=== PATIENT | female | born 1995 ===

== ENCOUNTER 2018-07-19 03:19 | Emergency (ER) | payer MEDICAID ==
[2018-07-19 03:35] VITALS: BP 132/90; PULSE 93; RESP 18; TEMP 98.9; O2SAT 100
--- NOTE | 2018-07-19 03:35 | ED PDOC ---
Lower Extremity Pain/Injury Time Seen by Provider: 07/19/18 03:29 Chief Complaint (Nursing): Lower Extremity Problem/Injury Chief Complaint (Provider): left knee pain History Per: Patient Additional Complaint(s): 22 y/o female presents moderate pain to left knee. Patient states 4 years ago she was diagnosed with an ACL tear but then he was never repaired. For the last few days she's had worsening pain but denies trauma or injury. Earlier this evening she felt a pop in her knee and has had excruciating pain since then. Patient called ambulance and was brought here. She did not take any medicine for pain relief prior to arrival PMD: Dr. Marlena Quiñonez Past Medical History Reviewed: Historical Data, Nursing Documentation, Vital Signs Vital Signs: Last Vital Signs Temp 98.9 F 07/19/18 03:23 Pulse 93 H 07/19/18 03:23 Resp 18 07/19/18 03:23 BP 132/90 07/19/18 03:23 Pulse Ox 100 07/19/18 03:23 - Medical History PMH: No Chronic Diseases - Surgical History Surgical History: No Surg Hx - Family History Family History: States: No Known Family Hx - Living Arrangements Living Arrangements: With Family - Social History Current smoker - smoking cessation education provided: No Alcohol: None Drugs: Denies - Home Medications Home Medications: Ambulatory Orders Medication Instructions Recorded Ibuprofen [Motrin Tab] 800 mg PO Q8 PRN #20 tab 07/19/18 traMADol [Ultram] 50 mg PO TID PRN #15 tab 07/19/18 - Allergies Allergies/Adverse Reactions: Allergies Allergy/AdvReac Type Severity Reaction Status Date / Time acetaminophen [From NyQuil] Allergy RASH Verified 07/19/18 03:23 dextromethorphan Allergy RASH Verified 07/19/18 03:23 [From NyQuil] doxylamine [From NyQuil] Allergy RASH Verified 07/19/18 03:23 pseudoephedrine [From NyQuil] Allergy RASH Verified 07/19/18 03:23 Wells Criteria for PE - Wells Criteria for Pulmonary Embolism Clinical Signs and Symptoms of DVT: No P.E is #1 Diagnosis, or Equally Likely: No Heart Rate >100: No Immobilization at least 3 days;Surgery previous 4 weeks: No Previous, objectively diagnosed PE or DVT: No Hemoptysis: No Malignancy w/treatment within 6 months, or palliative: No Total Score: 0 Review of Systems ROS Statement: Except As Marked, All Systems Reviewed And Found Negative Musculoskeletal: Positive for: Other (left knee pain) Physical Exam - Reviewed Nursing Documentation Reviewed: Yes Vital Signs Reviewed: Yes - Physical Exam Appears: Positive for: Well, Non-toxic, No Acute Distress Skin: Positive for: Normal Color. Negative for: Rash Eye Exam: Positive for: Normal appearance Extremity: Positive for: Other (Moderate swelling noted to left knee diffusely with decreased range of motion, no obvious bony deformity noted, no calf swelling or tenderness, normal distal sensation left lower extremity) Neurologic/Psych: Positive for: Alert, Oriented - Laboratory Results Urine POC: Negative - ECG O2 Sat by Pulse Oximetry: 100 Pulse Ox Interpretation: Normal - Other Rad Left knee x-ray X-Ray: Interpreted by Me, Viewed By Me X-Ray Interpretation: no fx, no dis, STS Medical Decision Making Medical Decision Makin22 y/o female with left knee pain Plan: test PO tramadol IM toradol X-ray left knee Patient states she feels better after meds were given. She is aware of x-ray results. Crutches were provided. Prescription for Motrin and tramadol given, patient referred to ortho for follow up. Procedures - Splinting Location: left knee Pre-Made Type: knee immobilizer Pre-Proc Neuro Vasc Exam: normal Post-Proc Neuro Vasc Exam: normal Disposition - Clinical Impression Clinical Impression: Knee pain Counseled Patient/Family Regarding: Studies Performed, Diagnosis, Need For Followup, Rx Given - Disposition Referrals: Marlena Quiñonez DO [Family Provider] - Vaughn Edge III, MD [Staff Provider] - Disposition: Routine/Home Disposition Time: 04:49 Condition: STABLE Additional Instructions: Take prescription meds as directed as needed for pain. Follow up as soon as possible with orthopedist or primary doctor if you need a referral to see a specialist. Prescriptions: Ibuprofen [Motrin Tab] 800 mg PO Q8 PRN #20 tab PRN Reason: Pain, Moderate (4-7) traMADol [Ultram] 50 mg PO TID PRN #15 tab PRN Reason: Pain, Moderate (4-7) Instructions: Knee Pain (DC) Forms: [employer] (Korean), [facility] ED School/Work Excuse
--- NOTE | 2018-07-19 10:34 | RAD ---
Date of service: 07/19/2018 PROCEDURE: Left Knee Radiographs. HISTORY: Pain. COMPARISON: None. FINDINGS: BONES: Bone alignment and mineralization are normal. There is no acute displaced fracture or bone destruction. JOINTS: Normal. JOINT EFFUSION: None. OTHER FINDINGS: None. IMPRESSION: No acute fracture or dislocation.
== END 2018-07-19 05:30 | disposition home or self-care (01) ==
LOC: H.ER 03:19
DX: M25.562 Pain in left knee (principal)
CPT/HCPCS: 29530; 73562; 81025; 96372; 99283; J1885